=== PATIENT | female | born 1970 | race Two or more races ===

== ENCOUNTER 2017-09-19 18:57 | Emergency (ER) | payer OTHER ==
[~2017-09-19] VITALS: Ht 157.5 cm; Wt 68.0 kg
[~2017-09-19 18:57] MED LIST: BUTALBITAL-APAP1 TA1 PO; CYMBALTA60 MG; LEVAQUIN750 MG PO; LOPRESSOR25 MG; MUCINEX600 MG PO; PARLODEL2.5 MG
[2017-09-19] MEDS ORDERED: CELEBREX50 MG (19:15)
[2017-09-19] MEDS ORDERED: FIORICET (19:17)
[2017-09-19] MEDS ORDERED: DOSTINEX (19:18)
== END 2017-09-19 22:09 | disposition home or self-care (01) ==
LOC: ER 18:57
DX: S60.571A Other superficial bite of hand of right hand, initial encounter (principal); W54.0XXA Bitten by dog, initial encounter; Y93.89 Activity, other specified; Y92.89 Other specified places as the place of occurrence of the external cause; Y99.8 Other external cause status

== ENCOUNTER 2018-02-13 10:06 | Emergency (ER) | payer OTHER ==
[~2018-02-13] VITALS: Ht 157.5 cm; Wt 70.8 kg
[~2018-02-13 10:06] MED LIST changes: +CELEBREX50 MG; +DOSTINEX; +FIORICET
[2018-02-13] MEDS ORDERED: PARLODEL2.5 MG PO (10:21)
[2018-02-13] MEDS ORDERED: PROPRANOLOL HCL10 MG PO (10:22)
[2018-02-13] MEDS ORDERED: AMOX1TAB5 PO (14:04)
[2018-02-13] MEDS ORDERED: IBUPROFEN800 MG PO (14:04)
[2018-02-13] MEDS ORDERED: MUPIROCIN22 GM TOP (14:04)
== END 2018-02-13 14:19 | disposition home or self-care (01) ==
LOC: ER 10:06
DX: L03.116 Cellulitis of left lower limb (principal)